=== PATIENT | female | born 1990 | race Hispanic/Latino ===

== ENCOUNTER 2019-05-14 08:11 | Outpatient (CLI) | payer OTHER ==
--- NOTE | 2019-05-14 09:49 | ULT ---
OBSTETRICAL ULTRASOUND: 05/14/2019 HISTORY: Evaluate anatomy. COMPARISON: None. TECHNIQUE: Multiplanar barreto-scale sonographic imaging of the gravid uterus is obtained. FINDINGS: Amniotic fluid index is approximately 18.4 cm. Cervical length is approximately 6-7 cm. The placenta is located anteriorly with no evidence for previa or abruption. A single live intrauterine gestation is present, demonstrating a heart rate of 143 beats per mi nute and a transverse lie with head to maternal left. The urinary bladder, kidneys, stomach, four chamber heart view, intracranial contents, spine, u mbilical cord and umbilical cord insertion and nose/lips appear grossly unremarkable. BIOMETRY: BPD: 4.9 cm (20 weeks 5 days) HC: 19.1 cm (21 weeks 3 days) AC: 17 cm (22 weeks 0 days) FL: 4.1 cm (23 weeks 1 day) Average age based on ultrasound is 21 weeks 6 days. Estimated weight is 492 g plus or minus 72 g. Estimated date of delivery is 09/18/2019. IMPRESSION: Single live intrauterine gestation as detailed above. POS: [facility]
== END 2019-05-14 08:12 | disposition home or self-care (01) ==
LOC: BICULT 08:11
PROVIDERS: ATTEND Family Medicine
DX: O09.892 Supervision of other high risk pregnancies, second trimester (principal); Z3A.21 21 weeks gestation of pregnancy
CPT/HCPCS: 76805

== ENCOUNTER 2019-09-14 19:15 | Inpatient (IN) | payer OTHER ==
[2019-09-14 22:32] VITALS: BMI 48.4
[2019-09-14] MEDS ORDERED: Butorphanol Tartrate 1 MG/ML VIAL SLOW IVP PRN (22:40)
[2019-09-14] MEDS ORDERED: NS / Oxytocin 40 units/1000ml 1,000 ML IV PRN (22:40)
[2019-09-14] MEDS ORDERED: Ondansetron PF 4 MG/2 ML Vial IVP PRN (22:40)
[2019-09-14] MEDS ORDERED: hydrALAZINE 20 MG/ML VIAL SLOW IVP PRN (22:40)
[2019-09-14] MEDS ORDERED: Promethazine HCl 25 MG/ML VIAL IM PRN (22:40)
[2019-09-14] MEDS ORDERED: Lidocaine 1% (PF) 30 ML VIAL SC PRN (22:40)
[2019-09-14] MEDS ORDERED: Acetaminophen 500 MG TAB PO PRN (22:40)
[2019-09-14] MEDS ORDERED: Meperidine HCl/PF 25 MG/ML VIAL IM/IV PRN (22:40)
[2019-09-14] MEDS ORDERED: Ibuprofen 800 MG TAB PO PRN (22:40)
[2019-09-14] MEDS ORDERED: HYDROcodone/Acetaminophen 5/325 mg Tablet PO PRN ×2 (22:40)
[2019-09-14] MEDS ORDERED: Zolpidem Tartrate 5 MG TAB PO PRN (22:40)
[2019-09-14] MEDS ORDERED: NS w/ Oxytocin 10 units 500 ML IV SCH (23:00)
[2019-09-14] MEDS ORDERED: Penicillin G Potassium 5 MILL.UNITS in Sodium Chloride 0.9% 100 ML IVPB SCH (23:00)
[2019-09-14] MEDS: Lactated Ringer's 1,000 ML IV SCH (23:16)
[2019-09-14 23:40] LABS: Hemoglobin 11.3 g/dL (12.0-16.0); Mean Corpuscular HGB CONC 34.5 g/dL (32.0-36.0); Mean Corpuscular Hemoglobin 29.6 pg (27.0-31.0); Mean Corpuscular Volume 85.7 fL (78.0-98.0); Platelet Count 182 thou/uL (130-400); RBC Distribution Width 14.9 % (11.5-14.5); Red Blood Cell (RBC) Count 3.81 mill/uL (4.20-5.40); White Blood Cell (WBC) Count 8.9 thou/uL (4.8-10.8)
[2019-09-14] MEDS: Misoprostol 100 MCG TAB VAG SCH (23:51)
[2019-09-15 00:20] LABS: Syphilis Antibody Nonreactive (Nonreactive); Syphilis Antibody Index 0.07 S/CO (<1.00 Non-Reactive)
[2019-09-15 00:55] LABS: HBSAg Index 0.13 S/CO (0-0.99); Hep B Surf Ag Non-Reactive S/CO (NonReactive)
[2019-09-15] MEDS: Penicillin G 2.5 MILL.units 2.5 MILL.UNITS in Premix Bag 1 BAG IVPB SCH ×3 (04:03→13:02)
[2019-09-15] MEDS: Misoprostol 100 MCG TAB VAG SCH ×3 (04:10→11:33)
[2019-09-15] MEDS: Lactated Ringer's 1,000 ML IV SCH ×5 (08:10→13:01)
[2019-09-15] MEDS ORDERED: Fentanyl 4 mcg/Bup 0.1% Cadd 100 ML ONE (09:09)
[2019-09-15] MEDS ORDERED: Terbutaline Sulfate 1 MG/ML VIAL ONE (10:39)
[2019-09-15 11:06] LABS: Actual Bicarbonate (HCO3a) 23.9 mEq/L (22-28); Base Excess (BEa) -5.3 mEq/L (-2.0 to +3.0)
[2019-09-15 11:07] LABS: Actual Bicarbonate (HCO3v) 22 mEq/L (22-28); Base Excess -3.9 mEq/L (-2.0 to +3.0); pH (Cord, venous) 7.32 (7.32-7.43)
[2019-09-15] MEDS ORDERED: Promethazine HCl 25 MG/ML VIAL IM PRN (11:14)
[2019-09-15] MEDS ORDERED: Naloxone HCl 0.4 mg/ml Vial IVP PRN ×2 (11:14)
[2019-09-15] MEDS ORDERED: Lactated Ringer's 500 ML IV PRN (11:14)
[2019-09-15] MEDS ORDERED: diphenhydrAMINE 50 MG/ML VIAL IVP PRN (11:14)
[2019-09-15] MEDS ORDERED: Acetaminophen 325 MG TAB PO PRN (11:14)
[2019-09-15] MEDS ORDERED: Ondansetron PF 4 MG/2 ML Vial IVP PRN ×2 (11:14→13:03)
[2019-09-15] MEDS ORDERED: EPHEDRINE 25 MG/5 ML SYRINGE SLOW IVP PRN (11:14)
[2019-09-15] MEDS ORDERED: Fentanyl 4 mcg/Bupivacaine 0.1% Cassette 100 ML EPIDURAL SCH (11:15)
[2019-09-15] MEDS ORDERED: Communication Order-Pharmacy FS SCH (11:15)
[2019-09-15] MEDS ORDERED: Terbutaline Sulfate 1 MG/ML VIAL SC SCH (12:30)
[2019-09-15] MEDS ORDERED: Milk Of Magnesia 30 ML UDCUP PO PRN (13:03)
[2019-09-15] MEDS ORDERED: NS / Oxytocin 40 units/1000ml 1,000 ML IV SCH (13:03)
[2019-09-15] MEDS ORDERED: Benzocaine-Menthol 82.5 ML CAN TOP PRN (13:03)
[2019-09-15] MEDS ORDERED: HYDROcodone/Acetaminophen 5/325 mg Tablet PO PRN (13:03)
[2019-09-15] MEDS ORDERED: diphenhydrAMINE 25 MG CAP PO PRN (13:03)
[2019-09-15] MEDS ORDERED: Bisacodyl 10 MG SUPP PR PRN (13:03)
[2019-09-15] MEDS ORDERED: Lanolin Ointment 7 GM TUBE TOP PRN (13:03)
[2019-09-15] MEDS ORDERED: hydrALAZINE 20 MG/ML VIAL SLOW IVP PRN (13:03)
[2019-09-15 17:58] LABS: Hemoglobin 7.7 g/dL (12.0-16.0); Mean Corpuscular HGB CONC 34.8 g/dL (32.0-36.0); Mean Corpuscular Hemoglobin 30.4 pg (27.0-31.0); Mean Corpuscular Volume 87.3 fL (78.0-98.0); Mean Platelet Volume 7.4 fL (7.4-10.4); Platelet Count 145 thou/uL (130-400); RBC Distribution Width 14.5 % (11.5-14.5); Red Blood Cell (RBC) Count 2.52 mill/uL (4.20-5.40)
[2019-09-15] MEDS: Ibuprofen 800 MG TAB PO SCH ×2 (18:05→21:18)
[2019-09-15] MEDS: Ferrous Sulfate 325 MG TAB PO SCH (18:05)
[2019-09-15] MEDS: Docusate Calcium (SURFAK) 240 MG CAP PO SCH (21:18)
[2019-09-16] MEDS: Ibuprofen 800 MG TAB PO SCH ×3 (01:48→21:10)
[2019-09-16] MEDS ORDERED: Adacel (T-DAP) 0.5 ML SYRINGE IM ONE (09:00)
[2019-09-16] MEDS: Prenatal Vitamin 1 TAB PO SCH (09:31)
[2019-09-16] MEDS: Docusate Calcium (SURFAK) 240 MG CAP PO SCH ×2 (09:32→21:10)
[2019-09-16] MEDS: Ferrous Sulfate 325 MG TAB PO SCH ×2 (09:32→18:30)
[2019-09-16] MEDS: HYDROcodone/Acetaminophen 5/325 mg Tablet PO PRN (09:32)
[2019-09-17] MEDS: HYDROcodone/Acetaminophen 5/325 mg Tablet PO PRN (04:09)
[2019-09-17] MEDS: Ibuprofen 800 MG TAB PO SCH ×3 (05:57→14:42)
[2019-09-17 08:25] VITALS: BP 115/56; TEMP 98.4
[2019-09-17] MEDS: Prenatal Vitamin 1 TAB PO SCH (09:25)
[2019-09-17] MEDS: Ferrous Sulfate 325 MG TAB PO SCH (09:25)
[2019-09-17] MEDS: Docusate Calcium (SURFAK) 240 MG CAP PO SCH (09:25)
== END 2019-09-17 18:40 | disposition home or self-care (01) | DRG 806 ==
LOC: L&D 22:02 → 3SW 09-15 15:43
PROVIDERS: ADMIT Family Medicine; ATTEND Family Medicine
PROC: 10D07Z6 Extraction of Products of Conception, Vacuum, Via Natural or Artificial Opening (ICD-10-PCS; principal; 2019-09-15)
PROC: 10907ZC Drainage of Amniotic Fluid, Therapeutic from Products of Conception, Via Natural or Artificial Opening (ICD-10-PCS; 2019-09-15)
PROC: 0HQ9XZZ Repair Perineum Skin, External Approach (ICD-10-PCS; 2019-09-15)
DX: O48.0 Post-term pregnancy (principal); O71.5 Other obstetric injury to pelvic organs; Z37.0 Single live birth; O72.1 Other immediate postpartum hemorrhage; Z3A.40 40 weeks gestation of pregnancy; O99.824 Streptococcus B carrier state complicating childbirth; E66.01 Morbid (severe) obesity due to excess calories; O99.214 Obesity complicating childbirth
CPT/HCPCS: 36415; 51702; 82805; 85027; 86780; 86850; 86900; 86901; 87340; 88307; J2540; J3105; J3490

== ENCOUNTER 2025-03-31 14:19 | Inpatient (IN) | payer OTHER, SELFPAY ==
[~2025-03-31 14:19] MED LIST: Iopamidol-370 76% 500 ML MDV (1 ML CHARGE) ONE
[2025-03-31] MEDS ORDERED: Acetaminophen 500 MG TAB ONE (14:48)
[2025-03-31] MEDS ORDERED: Ondansetron PF 4 MG/2 ML Vial ONE (14:48)
[2025-03-31 15:00] LABS: #Basophils Less than 0.03 10x3/uL (0.0-0.2); #Eosinophils Less than 0.03 10x3/uL (0.0-0.7); #Monocytes 0.76 10x3/uL (0.11-0.59); #Neutrophils 9.63 10x3/uL (1.40-6.50); %Basophils 0.2 % (0.0-1.0); %Eosinophils 0.2 % (0.0-10.0); %Lymphocytes 9.7 % (21.0-51.0); %Monocytes 6.6 % (0.0-10.0); %Neutrophils 82.9 % (42.0-75.0); Hematocrit 39.0 % (36.0-47.0); Hemoglobin 12.5 g/dL (12.0-16.0); Mean Corpuscular Hemoglobin 28.3 pg (27.0-31.0); Mean Corpuscular Volume 88.2 fL (78.0-98.0); Platelet Count 219 10x3/uL (130-400); Red Blood Cell (RBC) Count 4.42 mill/uL (4.20-5.40); White Blood Cell (WBC) Count 11.60 10x3/uL (4.8-10.8)
[2025-03-31 15:17] LABS: ALT (SGPT) 46 U/L (Less than 34); AST (SGOT) 23 U/L (11-34); Albumin 3.9 g/dL (3.1-4.5); Alkaline Phosphatase 78 U/L (40-110); Anion Gap 18 mmol/L (10-20); BUN (Urea Nitrogen) 7 mg/dL (7.0-18.7); Bilirubin, Total 0.9 mg/dL (0.3-1.2); Calc. Creatinine Clearance 0 mL/min (70-130); Calcium 9.2 mg/dL (7.8-10.44); Carbon Dioxide 21 mmol/L (22-29); Chloride 103 mmol/L (98-107); Globulin 3.3 g/dL (2.4-3.5); Glucose 128 mg/dL (70-105); Potassium 3.8 mmol/L (3.5-5.1); Sodium 138 mmol/L (136-145)
[2025-03-31] MEDS ORDERED: Ondansetron PF 4 MG/2 ML Vial IVP PRN (18:12)
[2025-03-31 18:54] LABS: Bacteria/HPF None Seen HPF (None Seen); CAUTI Indications for Culture Fever or rigors; Glucose, Urine (Dipstick) Normal (Negative); Leukocyte 75 Leu/uL (Negative); Protein, Urine (Dipstick) 50 mg/dL (Neg-Trace); RBC/HPF Greater than 50 HPF (0-3)
[2025-03-31 19:05] LABS: Specific Gravity, Urine Greater than 1.050 (1.002-1.036); WBC/HPF 0-3 HPF (0-3)
[2025-03-31 19:07] LABS: Urine Culture Reflex No No
[2025-03-31] MEDS: cefTRIAXone\\ROCEPHIN 2 GM in Sodium Chloride 0.9% 100 ML IVPB SCH (19:41)
[2025-03-31 19:54] LABS: Actual Bicarbonate (HCO3v) 20.6 mEq/L (22-28); Base Excess -4.4 mEq/L (-2.0 to +3.0); Calcium, Ionized (venous) 1.10 mmol/L (1.16-1.32); Chloride (VBG) 105 mmol/L (98-106); Hematocrit-VBG 35 % (36.0-47.0); Hemoglobin (Hb) 11.9 g/dL (11.7-15.5); Potassium (VBG) 3.40 mmol/L (3.70-5.30); Sodium 135 mmol/L (133-146)
[2025-04-01] MEDS: Acetaminophen 325 MG TAB PO PRN (00:18)
[2025-04-01 04:48] LABS: #Basophils Less than 0.03 10x3/uL (0.0-0.2); #Eosinophils 0.03 10x3/uL (0.0-0.7); #Monocytes 0.79 10x3/uL (0.11-0.59); #Neutrophils 4.70 10x3/uL (1.40-6.50); %Basophils 0.1 % (0.0-1.0); %Eosinophils 0.4 % (0.0-10.0); %Lymphocytes 17.8 % (21.0-51.0); %Monocytes 11.7 % (0.0-10.0); %Neutrophils 69.6 % (42.0-75.0); Hematocrit 32.4 % (36.0-47.0); Hemoglobin 10.3 g/dL (12.0-16.0); Mean Corpuscular Hemoglobin 28.8 pg (27.0-31.0); Mean Corpuscular Volume 90.5 fL (78.0-98.0); Platelet Count 165 10x3/uL (130-400); Red Blood Cell (RBC) Count 3.58 mill/uL (4.20-5.40); White Blood Cell (WBC) Count 6.76 10x3/uL (4.8-10.8)
[2025-04-01 05:07] LABS: Anion Gap 10 mmol/L (10-20); BUN (Urea Nitrogen) 4 mg/dL (7.0-18.7); Calc. Creatinine Clearance 0 mL/min (70-130); Calcium 8.1 mg/dL (7.8-10.44); Carbon Dioxide 22 mmol/L (22-29); Chloride 110 mmol/L (98-107); Glucose 109 mg/dL (70-105); Potassium 3.3 mmol/L (3.5-5.1); Sodium 139 mmol/L (136-145)
[2025-04-01] MEDS: Enoxaparin 40 MG (0.4 mL) SYRINGE SC SCH (08:10)
[2025-04-01 09:59] VITALS: TEMP 98.8
[2025-04-01 12:42] VITALS: BP 103/69
[2025-04-01] MEDS ORDERED: metroNIDAZOLE 500 MG TAB PO SCH (13:00)
[2025-04-01] MEDS: metroNIDAZOLE 500 MG TAB PO SCH (14:16)
== END 2025-04-01 16:25 | disposition home or self-care (01) | DRG 872 ==
LOC: ERS 14:19 → T4-A 17:30
PROVIDERS: ADMIT Family Medicine; ATTEND Family Medicine
DX: A41.9 Sepsis, unspecified organism (principal); K57.20 Diverticulitis of large intestine with perforation and abscess without bleeding; F10.90 Alcohol use, unspecified, uncomplicated; Z98.890 Other specified postprocedural states
CPT/HCPCS: 36415; 74177; 80048; 80053; 81001; 82805; 83605; 85025; 87040; 87086; 87428; 93005; 94760; 96361; 96365; 96375; J0696; J1650; J2270; J2405; J2543; J7030; Q9967